=== PATIENT | male | born 1950 | race Caucasian/White ===

== ENCOUNTER 2021-12-17 09:40 | Outpatient (CLI) | payer OTHER | END 2021-12-17 09:41 | disposition home or self-care (01) | LOC: TBSIIMAG 09:40 | PROVIDERS: ATTEND Nurse Practitioner Family | DX: M47.24 Other spondylosis with radiculopathy, thoracic region (principal); M47.816 Spondylosis without myelopathy or radiculopathy, lumbar region | CPT/HCPCS: 72146 ==

== ENCOUNTER 2022-01-05 12:10 | Outpatient (CLI) | payer OTHER | END 2022-01-05 12:11 | disposition home or self-care (01) | LOC: TBSIIMAG 12:10 | PROVIDERS: ATTEND Anesthesiology Pain Medicine | DX: M48.02 Spinal stenosis, cervical region (principal); M43.12 Spondylolisthesis, cervical region; M50.823 Other cervical disc disorders at C6-C7 level; M25.78 Osteophyte, vertebrae | CPT/HCPCS: 72141 ==

== ENCOUNTER 2022-01-14 12:01 | Outpatient (CLI) | payer OTHER | END 2022-01-14 12:02 | disposition home or self-care (01) | LOC: LABBT 12:01 | PROVIDERS: ATTEND Anesthesiology Pain Medicine | DX: Z20.822 Contact with and (suspected) exposure to COVID-19 (principal) | CPT/HCPCS: 87811 ==

== ENCOUNTER 2023-02-10 09:08 | Outpatient (CLI) | payer MEDICARE ==
[2023-02-10] MEDS ORDERED: Iopamidol-370 76% 500 ML MDV (1 ML CHARGE) ONE (10:11)
== END 2023-02-10 09:09 | disposition home or self-care (01) ==
LOC: BICCT 09:08
PROVIDERS: ATTEND Physician Assistant Medical
DX: N40.0 Benign prostatic hyperplasia without lower urinary tract symptoms (principal); K52.9 Noninfective gastroenteritis and colitis, unspecified; R35.1 Nocturia; N20.0 Calculus of kidney; K76.0 Fatty (change of) liver, not elsewhere classified; N28.1 Cyst of kidney, acquired
CPT/HCPCS: 74177; 82565; Q9967

== ENCOUNTER 2023-12-28 09:57 | Outpatient (CLI) | payer MEDICARE | END 2023-12-28 09:58 | disposition home or self-care (01) | LOC: SCSMRI 09:57 | PROVIDERS: ATTEND Nurse Practitioner Family | DX: M51.16 Intervertebral disc disorders with radiculopathy, lumbar region (principal); M47.26 Other spondylosis with radiculopathy, lumbar region; M47.817 Spondylosis without myelopathy or radiculopathy, lumbosacral region | CPT/HCPCS: 72100; 72148 ==